=== PATIENT | female | born 1990 | race Caucasian/White ===

== ENCOUNTER 2019-04-10 05:35 | Inpatient (IN) | payer OTHER ==
[2019-04-10 06:48] VITALS: BMI 26.4
[2019-04-10 08:36] LABS: BASO % 0.1 % (0-2.0); EOS % 0.1 % (0-4.5); HEMATOCRIT 34.2 % (32.4-45.2); HEMOGLOBIN 11.9 GM/dL (10.7-15.3); LYMPH % 10.3 % (8-40); MCH 30.4 pg (25.7-33.7); MCHC 34.6 g/dl (32.0-36.0); MEAN CELL VOLUME 87.9 fl (80-96); MEAN PLT VOLUME 8.2 fl (7.5-11.1); MONO % 4.4 % (3.8-10.2); NEUT % 85.1 % (42.8-82.8); PLATELET COUNT 185 K/MM3 (134-434); RBC 3.89 M/mm3 (3.60-5.2); RDW 13.6 % (11.6-15.6); WHITE BLOOD COUNT 13.2 K/mm3 (4.0-10.0)
[2019-04-10 08:48] LABS: ALBUMIN 2.9 g/dl (3.4-5.0); BILIRUBIN,TOTAL 0.4 mg/dL (0.2-1); CALCIUM 8.6 mg/dL (8.5-10.1); CREATININE 0.5 mg/dL (0.55-1.3); POTASSIUM 3.9 mmol/L (3.5-5.1)
[2019-04-10] MEDS ORDERED: NALOXONE HCL 0.4 MG/ML VIAL IVPUSH PRN (09:23)
[2019-04-10] MEDS ORDERED: SODIUM CHLORIDE 0.9% P/F 10 ML VIAL IJ ONE (09:29)
[2019-04-10] MEDS ORDERED: FENTANYL/BUPIVACAINE/NS/PF - PCEA - 50 ML DISP.SYRIN EP SCH ×2 (09:30→13:20)
[2019-04-10] MEDS ORDERED: OXYTOCIN 30 UNITS in 0.9% NS 30 UNIT/500 ML INFUS.BAG IVPB SCH (09:30)
[2019-04-10] MEDS ORDERED: DEXTROSE 5%-LACTATED RINGERS 1,000 ML IV SCH (09:30)
[2019-04-10] MEDS ORDERED: BUPIVACAINE HCL/PF 2.5 MG/ML - 30 ML VIAL IJ ONE (09:30)
[2019-04-10 09:33] LABS: INR 0.93 (0.83-1.09)
[2019-04-10] MEDS ORDERED: FENTANYL/BUPIVACAINE/NS/PF - PCEA - 50 ML DISP.SYRIN EP ONE ×2 (09:33→15:20)
[2019-04-10 09:36] LABS: ACTIVATED PTT 26.1 SECONDS (25.2-36.5)
[2019-04-10] MEDS ORDERED: OXYTOCIN 30 UNITS in 0.9% NS 30 UNIT/500 ML INFUS.BAG IVPB ONE (12:31)
[2019-04-10] MEDS ORDERED: OXYTOCIN 20 UNITS in 0.9% NS 20 UNIT/1,000 ML INFUS.BAG IV ONE (16:41)
[2019-04-10] MEDS ORDERED: WITCH HAZEL 50% (TUCKS) 40 PAD/JAR PAD TP PRN (18:01)
[2019-04-10] MEDS ORDERED: oxyCODONE HCL 5 MG TABLET PO PRN (18:01)
[2019-04-10] MEDS ORDERED: METHYLERGONOVINE MALEATE 0.2 MG/1 ML AMP IM PRN (18:01)
[2019-04-10] MEDS ORDERED: BENZOCAINE 20% 57 GM BOTTLE TP PRN (18:01)
[2019-04-10] MEDS ORDERED: IBUPROFEN 600 MG TABLET (FP) PO PRN (18:01)
[2019-04-10] MEDS ORDERED: BENZOCAINE 28 GM HEMORRHOIDAL OINTMENT TP PRN (18:01)
[2019-04-10] MEDS ORDERED: BISACODYL 10 MG SUPP.RECT RC PRN (18:01)
[2019-04-10] MEDS ORDERED: ACETAMINOPHEN 325 MG TABLET (FP) PO PRN (18:01)
--- NOTE | 2019-04-10 18:08 | HP ---
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 [employer]: No: Alzheimer's, CVA, Dementia, Migraine, Multiple Sclerosis, Peripheral Neuropathy, Parkinson's, Seizure, Syncope, TIA, Vertigo, Other Cardiovascular: No: AFIB, Aneurysm, Aortic Insufficiency, Aortic Stenosis, CAD, CHF, Deep Vein Thrombosis, HTN, Hyperlipdemia, CA, Mitral Insufficiency, Mitral Stenosis, Murmur, Pulmonary Hypertension, Other Pulmonary: No: Asthma, Bronchitis, Cancer, COPD, O2 Dependent, Pneumonia, Previously Intubated, Pulmonary Embolus, Pulmonary Fibrosis, Sleep Apnea, Other Gastrointestinal: No: Ascites, Cancer, Constipation, Crohn's Disease, Diverticulitis, Diverticulosis, Esophageal Varices, Gastritis, GERD, GI Bleed, Hemorrhoids, Hiatal Hernia, Inflamatory Bowel Disease, Irritable Bowel Disease, Pancreatitis, Peptic Ulcer Disease, Ulcerative Colitis, Other Hepatobiliary: No: Cirrhosis, Cholelithiasis, Cholecystitis, Choledocholithiasis , Hepatitis A, Hepatitis B, Hepatitis C, Other Renal/: No: Renal Failure, Renal Inusuff, BPH, Cancer, Hematuria, Hemodialysis , Neurogenic Bladder, Renal Calculi, UTI, Other Reproductive: No: Ectopic , Endometriosis, Fibroids, PID, Polycystic Ovary Syndrome, Postmenopausal, Other ...: 1 ...Para: 0 ...Term: 0 ...: 0 ...Spon : 0 ...Induced : 0 ...Multiple Gestation: 0 ... Weeks Gestation by Dates: 40.0 ...EDC by Dates: 04/10/19 Heme/Onc: No: Anemia, B12 Deficiency, Bleeding Disorder, Cancer, Current Chemotherapy, Current Radiation Therapy, Hemochromatosis, Hypercoaguable State, Myeloproliferative Synd, Sickle Cell Disease, Sickle Cell Trait, Thrombocytopenia, Other Infectious Disease: No: AIDS, C-Diff, Herpes Zoster, HIV, MRSA, STD's, Tuberculosis, VREF, Other Psych: No: Addictions, Anxiety, Bipolar, Depression, Panic, Psychosis, Schizophrenia, Other Musculoskeletal: No: Bursitis, Chronic low back pain, Hemiparesis, Hemiplegia, Osteoarthritis, Paraplegia, Other Rheumatology: No: Fibromyalgia, Gout, Lupus, Rheumatoid Arthritis, Sarcoidosis, Vasculitis, Other ENT: No: Allergic Rhinitis, Sinusitis, Other Endocrine: No: [place]'s Disease, [place]'s Disease, Diabetes Insipidus, Diabetes Mellitus, Hyperparathyroidism, Hyperthyroidism, Hypothyroidism, Osteopenia, SIADH, Other Dermatology: No: Basal Cell, Cellulitis, Eczema, Melanoma, Psoriasis, Squamous Cell, Other - Past Surgical History Past Surgical History: No: None, AAA Repair, AICD, Amputation, Appendectomy, Arthrosocopy, AV Fistula/Graft, Bariatric Surgery, Breast Biopsy, Bypass, CABG, Carotid Endarterectomy, Cataract Removal, Cholecystectomy, Colectomy, Colonoscopy, Colostomy, Craniotomy, , Cystectomy, Hernia Repair, Hysterectomy, Ileal Conduit, Ileosotomy, Joint Replacement, Kidney Transplant, Laminectomy, Liver Transplant, Mastectomy, Nephrectomy, Oopherectomy, Orchiectomy, Permanent Pacemaker, Prostatectomy, Splenectomy, Stent, Thoracotomy , TURP, Tonsillectomy, Tubal Ligation, Upper Endoscopy, Valve Replacement, Vasectomy, Vein Stripping/Ligation Hx Myomectomy: No Hx Transabdominal Cerclage: No - Advance Directives Advance Directives: Yes: Living Will - Smoking History Smoking history: Never smoked Have you smoked in the past 12 months: No - Alcohol/Substance Use Hx Alcohol Use: No History of Substance Use: reports: None - Social History Usual Living Arrangement: Yes: Alone, With Spouse Do you think of yourself as: Straight/Heterosexual ADL: Independent History of Recent Travel: No Home Medications - Allergies Allergies/Adverse Reactions: Allergies Allergy/AdvReac Type Severity Reaction Status Date / Time No Known Allergies Allergy Verified 04/10/19 05:53 - Home Medications Home Medications: Ambulatory Orders Calcium Carbonate [Calcium] 1,000 mg PO DAILY 04/10/19 Vitamins (Sjr) - 1 tab PO DAILY 04/10/19 Family Medical History Family History: Denies Review of Systems - Review of Systems Constitutional: reports: No Symptoms Eyes: reports: No Symptoms HENT: reports: No Symptoms Neck: reports: No Symptoms Cardiovascular: reports: No Symptoms Respiratory: reports: No Symptoms Gastrointestinal: reports: No Symptoms Genitourinary: reports: No Symptoms Breasts: reports: No Symptoms Reported Musculoskeletal: reports: No Symptoms Integumentary: reports: No Symptoms Neurological: reports: No Symptoms Endocrine: reports: No Symptoms Hematology/Lymphatic: reports: No Symptoms Psychiatric: reports: No Symptoms Physical Exam - Maternity Vital Signs: Vital Signs Temperature 98.4 F 04/10/19 14:00 Pulse Rate 70 04/10/19 17:15 Respiratory Rate 18 04/10/19 17:15 Blood Pressure 130/74 04/10/19 17:15 O2 Sat by Pulse Oximetry (%) 100 04/10/19 17:15 Constitutional: Yes: Well Nourished, No Distress, Calm Eyes: Yes: WNL, Conjunctiva Clear, EOM Intact HENT: Yes: WNL, Atraumatic, Normocephalic Neck: Yes: WNL, Supple, Trachea Midline Cardiovascular: Yes: WNL, Regular Rate and Rhythm Lungs: Clear to auscultation Breast(s): Yes: WNL - Abdominal Exam/OB Fundal Height: 40 Number of Fetuses: Single Presentation: Vertex Contractions: No Regularity: Irregular Intensity: Moderate Monitor Mode: External Heart Rate Location: [facility] Category: I Accelerations: Uniform Decelerations: None - Vaginal Exam/OB Vaginal Bleediing: Bloody Show Speculum Exam: No Dilatation (cm): 4 Effacement (%): 90 Amniotic Membrane Status: Bulging Presentation: Vertex/Position Station: -1 - Physical Exam Musculoskeletal: Yes: WNL Extremities: Yes: WNL Edema: Yes Edema: LUE: 1+, RUE: 1+, LLE: 1+ Integumentary: Yes: WNL Deep Tendon Reflex Grade: Normal +2 ...Motor Strength: WNL Psychiatric: Yes: WNL, Alert, Oriented - Labs Lab Results: CBC, BMP 04/10/19 07:50 04/10/19 07:50 Assessment/Plan for laboring, getting epidural soon , the augment
--- NOTE | 2019-04-10 18:09 | PN ---
Progress Note (short form) - Note Progress Note: 130 pm, 7 cm, 0 station, 100 %, bulging membrane , comfortable w epidural , nst reactive
--- NOTE | 2019-04-10 18:11 | PN ---
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
--- NOTE | 2019-04-10 18:11 | PN ---
Progress Note (short form) - Note Progress Note: 4pm, 10 cm, +1 , 100%, off epidural, arom, pushing soon
[2019-04-10] MEDS ORDERED: OXYTOCIN 20 UNITS in 0.9% NS 20 UNIT/1,000 ML INFUS.BAG IV SCH (18:15)
[2019-04-10 23:00] LABS: BASO % 0.1 % (0-2.0); HEMATOCRIT 30.5 % (32.4-45.2); HEMOGLOBIN 10.2 GM/dL (10.7-15.3); LYMPH % 6.2 % (8-40); MCH 30.2 pg (25.7-33.7); MCHC 33.5 g/dl (32.0-36.0); MEAN CELL VOLUME 90.2 fl (80-96); MEAN PLT VOLUME 8.4 fl (7.5-11.1); MONO % 7.7 % (3.8-10.2); PLATELET COUNT 174 K/MM3 (134-434); RBC 3.38 M/mm3 (3.60-5.2); RDW 13.6 % (11.6-15.6); WHITE BLOOD COUNT 15.5 K/mm3 (4.0-10.0)
[2019-04-10 23:13] LABS: INR 0.93 (0.83-1.09)
--- NOTE | 2019-04-11 13:14 | PN ---
Post Progress Note Post Day: 1 Type of Delivery: Vital Signs: Vital Signs Temperature 98.1 F 04/11/19 07:30 Pulse Rate 73 04/11/19 07:30 Respiratory Rate 18 04/11/19 07:30 Blood Pressure 103/52 L 04/11/19 07:30 O2 Sat by Pulse Oximetry (%) 98 04/10/19 18:45 Breast Exam: Yes: Soft Uterus: Yes: Fundus Firm, Fundus below umbilicus Abdomen/GI: Yes: Abdomen soft, Passing flatus, Tolerating PO Lochia: Yes: Serosa Lochia, amount: Small Extremities: Yes: Calves non-tender Perineum: Yes: Laceration Activity: Ambulating - Labs Labs: CBC WBC 15.5 K/mm3 (4.0-10.0) H 04/10/19 22:00 RBC 3.38 M/mm3 (3.60-5.2) L 04/10/19 22:00 Hgb 10.2 GM/dL (10.7-15.3) L 04/10/19 22:00 Hct 30.5 % (32.4-45.2) L 04/10/19 22:00 MCV 90.2 fl (80-96) 04/10/19 22:00 MCH 30.2 pg (25.7-33.7) 04/10/19 22:00 MCHC 33.5 g/dl (32.0-36.0) 04/10/19 22:00 RDW 13.6 % (11.6-15.6) 04/10/19 22:00 Plt Count 174 K/MM3 (134-434) 04/10/19 22:00 MPV 8.4 fl (7.5-11.1) 04/10/19 22:00 Absolute Neuts (auto) 13.3 K/mm3 (1.5-8.0) H 04/10/19 22:00 Neutrophils % 86.0 % (42.8-82.8) H 04/10/19 22:00 Lymphocytes % 6.2 % (8-40) L D 04/10/19 22:00 Monocytes % 7.7 % (3.8-10.2) 04/10/19 22:00 Eosinophils % 0.0 % (0-4.5) D 04/10/19 22:00 Basophils % 0.1 % (0-2.0) 04/10/19 22:00 Nucleated RBC % 0 % (0-0) 04/10/19 22:00 Other Findings, Remarks: doing well, dc pt home tomorrow
--- NOTE | 2019-04-11 13:17 | DS ---
Physical Exam-VICE PRESIDENT OF MARKETING Vital Signs: Vital Signs Temperature 98.1 F 04/11/19 07:30 Pulse Rate 73 04/11/19 07:30 Respiratory Rate 18 04/11/19 07:30 Blood Pressure 103/52 L 04/11/19 07:30 O2 Sat by Pulse Oximetry (%) 98 04/10/19 18:45 Constitutional: Yes: Well Nourished, No Distress, Calm Eyes: Yes: WNL, Conjunctiva Clear, EOM Intact HENT: Yes: WNL, Atraumatic, Normocephalic Neck: Yes: WNL, Supple, Trachea Midline Cardiovascular: Yes: WNL, Regular Rate and Rhythm Respiratory: Yes: WNL, Regular, CTA Bilaterally Gastrointestinal: Yes: WNL, Normal Bowel Sounds, Soft ...Rectal Exam: Yes: WNL Renal/: Yes: WNL Pelvis: Yes: WNL External Genitalia: Yes: Normal Internal Exam Deferred: No Vaginal Exam: Yes: Normal Cervix: Yes: Normal Uterus: Yes: Normal ....Post : Yes: Uterus firm, Uterus non-tender Breast(s): Yes: WNL Musculoskeletal: Yes: WNL Extremities: Yes: WNL Edema: Yes Edema: LUE: 1+, RUE: 1+, LLE: 1+, RLE: 1+ Integumentary: Yes: WNL Wound/Incision: Yes: Clean/Dry, Well Approximated Neurological: Yes: WNL, Alert, Oriented ...Motor Strength: WNL Psychiatric: Yes: WNL, Alert, Oriented Labs: CBC, BMP 04/10/19 22:00 04/10/19 07:50 Delivery - Delivery Vaginal Delivery: No Problems Type of Anesthesia: Epidural Episiotomy/Laceration: Vaginal Extension/lac, 1st degree EBL (cc): 300 Delivery, Single - Stages of Labor Date 1st Stage Initiatied: 04/10/19 Time 1st Stage Initiated: 10:00 Date 2nd Stage Initiated: 04/10/19 Time 2nd Stage Initiated: 17:05 Date of Delivery: 04/10/19 Time of Delivery: 17:22 Time Placenta Delivered: 17:24 Placenta: Yes: Spontaneous - 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 Present: [place]: Ama Ledesma Infant Gender: Female Weight: 3.317 kg Position: Right, OA Total Hours ROM (Hrs/Mins): 54mins - 1 Minute Total Score: 9 5 Minutes Total Score: 9 - Feeding Plan Initial Plan: Exclusive throughout hospitalization Discharge Summary Problems reviewed: Yes Reason For Visit: LABOR ADMIT Procedures: Principal: Other Procedures: none Hospital Course: uneventful Health Concerns: none Plan of Treatment: oob as much as possible Goals: return to work in 8 weeks Condition: Good - Instructions Diet, Activity, Other Instructions: regular, routine post care Disposition: HOME - Home Medications Comprehensive Discharge Medication List: Ambulatory Orders Calcium Carbonate [Calcium] 1,000 mg PO DAILY 04/10/19 Vitamins (Sjr) - 1 tab PO DAILY 04/10/19 Prescription Drug Monitoring Program (I-STOP) results: I-STOP reviewed and no issues identified
[2019-04-11 20:01] LABS: BASO % 0.3 % (0-2.0); EOS % 0.7 % (0-4.5); HEMATOCRIT 25.9 % (32.4-45.2); HEMOGLOBIN 8.5 GM/dL (10.7-15.3); LYMPH % 13.1 % (8-40); MEAN PLT VOLUME 7.9 fl (7.5-11.1); MONO % 7.5 % (3.8-10.2); NEUT % 78.4 % (42.8-82.8); PLATELET COUNT 170 K/MM3 (134-434); RBC 2.85 M/mm3 (3.60-5.2); RDW 13.7 % (11.6-15.6); WHITE BLOOD COUNT 12.1 K/mm3 (4.0-10.0)
[2019-04-11] MEDS ORDERED: SENNOSIDES/DOCUSATE COMBO (SENNA PLUS) TABLET (UD) PO PRN (22:00)
[2019-04-12 08:45] VITALS: BP 98/50; PULSE 57; TEMP 98.2
== END 2019-04-12 13:30 | disposition home or self-care (01) | DRG 560 ==
LOC: JLDR 05:35 → J3W 19:35
PROVIDERS: ADMIT Obstetrics & Gynecology; ATTEND Obstetrics & Gynecology
PROC: 0HQ9XZZ Repair Perineum Skin, External Approach (ICD-10-PCS; principal; 2019-04-10)
PROC: 10E0XZZ Delivery of Products of Conception, External Approach (ICD-10-PCS; 2019-04-10)
DX: O48.0 Post-term pregnancy (principal); O70.0 First degree perineal laceration during delivery; Z3A.40 40 weeks gestation of pregnancy; Z37.0 Single live birth
CPT/HCPCS: 36415; 59025; 59409; 80053; 82962; 85025; 85610; 85730; 86762; 86850; 86900; 86901; 87389